=== PATIENT | male | born 1950 | race Caucasian/White ===

== ENCOUNTER 2023-08-12 11:53 | Outpatient (CLI) | payer MEDICARE, SELFPAY ==
--- NOTE | 2023-08-12 11:58 | USCV_ITS ---
Brissa Sinclair Age: 72 Gender: M : 1950 Exam Date: 08/12/2023 12:06 Ordering Phys: Jax Flynn MD Technologist: Exam Location: [facility] [place] Indication: afib BP: 124 / 72 HR: 84 Rhythm: Sinus Technical Quality: Suboptimal MEASUREMENTS (Male / Female) Normal Values 2D ECHO LV Diastolic Diameter PLAX 4.0 cm 4.2 - 5.9 / 3.9 - 5.3 cm LV Systolic Diameter PLAX 2.3 cm IVS Diastolic Thickness 1.2 cm 0.6 - 1.0 / 0.6 - 0.9 cm IVS Systolic Thickness 1.8 cm LVPW Diastolic Thickness 1.4 cm 0.6 - 1.0 / 0.6 - 0.9 cm LVPW Systolic Thickness 1.3 cm LVOT Diameter 2.0 cm LV Ejection Fraction 2D Teich 74.5 % LV Ejection Fraction MOD 2C 55.8 % LV Ejection Fraction 2C AL 58.2 % LA Diameter 3.8 cm M-MODE Aortic Annulus Diameter 3.4 cm LA Ao Ratio MM 1.1 MV E Point Septal Separation 0.8 cm DOPPLER AV Peak Velocity 132.0 cm/s LVOT Peak Velocity 112.0 cm/s AV Area Cont Eq vti 2.9 cm squared AV Area Cont Eq pk 2.7 cm squared MV Area PHT 5.0 cm squared Mitral E to A Ratio 1.0 MV E' Velocity 53.0 cm/s Mitral E to MV E' Ratio 9.9 Mitral E to LV E' Lateral Ratio 10.3 Mitral E to LV E' Septal Ratio 9.5 TR Peak Velocity 155.3 cm/s TR Peak Gradient 9.7 mmHg TV Peak E Velocity 97.0 cm/s Right Atrial Pressure 3.0 mmHg Pulmonary Artery Systolic Pressu 12.7 mmHg RV Acceleration Time 0.1 s FINDINGS Left Ventricle The rhythm is sinus with frequent PVCs and then form of trigeminy and bigeminy. Normal left ventricular size, systolic function and wall thickness, with no regional wall motion abnormalities. Grade I/IV diastolic dysfunction (abnormal relaxation filling pattern), normal to mildly elevated filling pressures. Left ventricular ejection fraction is estimated at 60 %. Right Ventricle Normal right ventricular size and systolic function. Normal right ventricular systolic pressure. Right Atrium The right atrium is normal in size. Left Atrium The left atrium is normal in size. Mitral Valve Structurally normal mitral valve without significant stenosis or prolapse. There is no mitral regurgitation. Aortic Valve Structurally normal aortic valve without significant sclerosis or stenosis. There is no aortic regurgitation. Tricuspid Valve Structurally normal tricuspid valve. Trace tricuspid valve regurgitation. Pulmonic Valve Pulmonic valve not well visualized. Pericardium Normal pericardium without effusion. Aorta Normal ascending aorta dimension. IVC Inferior vena cava not visualized. CONCLUSIONS The rhythm is sinus with frequent PVCs and then form of trigeminy and bigeminy. Normal left ventricular size, systolic function and wall thickness, with no regional wall motion abnormalities. Grade I/IV diastolic dysfunction (abnormal relaxation filling pattern), normal to mildly elevated filling pressures. Left ventricular ejection fraction is estimated at 60 %. There are no prior echocardiogram studies to compare. Dr. Marquise Palacios MD (Electronically Signed) Final Date: 12 August 2023 15:06 S
== END 2023-08-12 11:54 | disposition home or self-care (01) ==
LOC: RAD 11:53
PROVIDERS: PCP Family Medicine; Visit Provider Family Medicine
DX: I48.91 Unspecified atrial fibrillation (principal)
CPT/HCPCS: 93306

== ENCOUNTER → 2023-09-14 09:47 | Outpatient (BNVA) | payer MEDICARE, SELFPAY | PROVIDERS: PCP Family Medicine; Referring Provider Family Medicine; Visit Provider Internal Medicine Cardiovascular Disease | DX: I25.10 Atherosclerotic heart disease of native coronary artery without angina pectoris (principal); J44.9 Chronic obstructive pulmonary disease, unspecified; I73.9 Peripheral vascular disease, unspecified; I65.29 Occlusion and stenosis of unspecified carotid artery; I48.91 Unspecified atrial fibrillation; E78.2 Mixed hyperlipidemia; Z87.891 Personal history of nicotine dependence; I11.9 Hypertensive heart disease without heart failure | CPT/HCPCS: 99204 ==

== ENCOUNTER 2023-10-05 13:53 | Oncology outpatient (recurring) (ONCR) | payer MEDICARE, SELFPAY ==
--- NOTE | 2023-10-05 15:06 | N.ONRAD NP_ITS ---
Radiation Oncology New Patient Visit Patient: Brissa Sinclair MR#: [id number] : 1950 Age: 73 Sex: Male Dictated by: Dr. Damaris Macdonald Date of Service: 10/05/2023 Referring Physician(s) : Dr. 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 Chief Complaint / History of Present Illness: Patient is a 73-year-old gentleman who describes a 2-year history. He said at first he felt a nodule in the left nasal septum about 2 years ago. He said it felt like a sac of fluid. It subsequently got very very sore and then broke open and bled. Since that time it has continually scabbed up and then rebled multiple times. He said prior to his biopsy he had a bloody nose every day. Since the biopsy the bleeding has stopped. He is here today to discuss his diagnosis and proceed with workup and evaluation. He has had radiation before for his prostate cancer. Current Medications: Allergies: Sulfa, Bactrim, Morphine, Augmentin Medical History: No history of collagen vascular disease. No previous radiation therapy. Surgical History: Family History: Social History: Current Complaints / Review of Systems: . Vital Signs: Performed on 10/05/2023 2:13 PM BMI - 34.28 kg/m2 (high), Height - 65 in, Weight - 206 lbs, Temperature - 97.8 f, Pulse - 74 /min, Respiration - 16 /min, O2 Sat - 96 %, Pain - 0, Fatigue - 0 and BP - 158/ 72 mm(hg)(high/). Physical Exam: General: Patient is in no apparent distress. He is accompanied by his sister HEENT: Normocephalic atraumatic. Pupils are equal, sclera clear, extraocular muscles intact. Nasal cavity on the left appears to be obstructed by very erythematous tissue. Appears to extend from the nasal septum laterally to obstruct the nasal opening. There is no active bleeding currently. He has no appreciable cervical or supraclavicular adenopathy. Pulmonary: Respiratory rate is regular nonlabored Cardiovascular: Regular rate and rhythm Abdomen: Patient is markedly protuberant and android pattern Extremities: No obvious edema is noted in the upper extremities Neurological: Alert and orient x 3. Gait and speech within normal limits Psych: Normal affect for current situation Performance Status: KPS 100 Pathology: Lab: Imaging: See HPI Impression: Newly diagnosed moderately differentiated squamous cell carcinoma of the nasal septum Plan: I reviewed with Mr. Wheeler and his sister the findings from the biopsy. We talked about the next step would be to proceed with evaluation to determine the extent of the disease. Will order an MRI of the face and sinus as well as a CT of the soft tissue neck and a PET scan. Secondary to his insurance it may take up to a month to get his PET scan approved. We should be able to get the other scans fairly quickly. Once we get those we will call him and have him return for a follow-up so we can delineate the extent of disease and proceed with evaluation in regards to potential treatment options. We did briefly talk about the radiation option of which he is familiar due to his cancer treatment from before. We did touch upon the effects of radiation in that area and how sore the area we could get internally in the nasal cavity. We also talked briefly about surgical resection of this area and how would be fairly limited and most likely he would require postop radiation. All of his questions and his sister's questions were answered at this point. Will have him return once we have the above information. Signed by: 10/05/2023 3:04:12 PM <<Signature on File>> Time spent with patient:60 CPT Code: CPT Code:
== END 2023-10-28 23:59 | disposition home or self-care (01) ==
PROVIDERS: PCP Family Medicine; Visit Provider Radiology Radiation Oncology
DX: C30.0 Malignant neoplasm of nasal cavity (principal); Z85.46 Personal history of malignant neoplasm of prostate; Z92.3 Personal history of irradiation; Z53.9 Procedure and treatment not carried out, unspecified reason
CPT/HCPCS: 99205

== ENCOUNTER 2023-10-08 13:58 | Outpatient (CLI) | payer MEDICARE, SELFPAY ==
--- NOTE | 2023-10-08 14:30 | MR_ITS ---
WS: [id number] MRI FACE AND NECK WITH AND WITHOUT CONTRAST. COMPARISON: None Multiplanar, multisequence imaging is performed with and without contrast. MultiHance 20 mL IV. History of LEFT nostril cancer. No signal abnormality is noted to the face or neck. There are no enhancing masses. Cannot confirm abn ormal mass or enhancement within the region of the LEFT nostril mucosa. There is no deviation of the midline structures. No enhancement. No fluid collection. Orbits and globes are normal. No signal abno rmality at the tongue base or the hypopharynx. No air-fluid levels in the sinus cavities. No soft tissue masses. The visualized brain demonstrates m ild bilateral cerebral atrophy. No temporal lobe atrophy. The ventricles are normal size. Negative po sterior fossa. IMPRESSION: 1. No abnormal enhancement or mass identified in the nasal cavity by MRI. 2. No cervical chain lymphadenopathy.
[2023-10-08] MEDS: gadobenate dimeglumine 20 mL vial IV (14:54)
== END 2023-10-08 13:59 | disposition home or self-care (01) ==
LOC: RAD 13:59
PROVIDERS: PCP Family Medicine; Visit Provider Radiology Radiation Oncology
DX: C11.3 Malignant neoplasm of anterior wall of nasopharynx (principal)
CPT/HCPCS: 70543; A9577

== ENCOUNTER 2023-10-18 11:21 | Outpatient (CLI) | payer MEDICARE, SELFPAY ==
--- NOTE | 2023-10-18 12:00 | CT_ITS ---
WS: [id number] CT NECK TECHNIQUE: Contrast-enhanced CT of the neck with coronal and sagittal reformatted images. CLINICAL INFORMATION: cancer of nasal septum COMPARISON: None. DLP: 218.[address] scans at [facility] use at least one of these dose optimization techniques: automated e xposure control; mA and/or kV adjustment per patient size (includes targeted exams where dose is matc hed to clinical indication); or iterative reconstruction. FINDINGS: Paranasal sinuses and mastoid air cells are well aerated. Mild mucosal thickening in the et hmoid air cells. Bilateral genaro bullosa. Ostiomeatal units are patent. Mild LEFT to RIGHT nasal sep jorge deviation measuring 3.6 mm. Mild bony thinning of the anterior nasal septum. No nasal septal perf oration. Normal posterior nasopharynx. Normal submandibular glands. Suspected accessory LEFT submandibular gla nd. Parotid glands are normal. No cervical lymphadenopathy. Normal thyroid gland. Advanced chronic em physematous changes in the lung apices. Normal posterior nasopharynx. Normal tongue base. No evidence of supraglottic or glottic mass. Normal subglottic airway. Moderate RIGHT greater than LEFT carotid bulb calcification. Significant stenosis RIGHT proximal ICA. This could be further evaluated with CTA . Normal posterior nasopharynx. Normal parapharyngeal fat. Straightening of the normal cervical lordosis. Advanced spondylitic changes cervical spine. LEFT para central disc osteophyte protrusion C4-5 with moderate central canal stenosis. Severe stenosis LEFT pr oximal subclavian artery patent vertebral artery suspicious for subclavian steal. This can be further evaluated with ultrasound. IMPRESSION: 1. Severe stenosis LEFT proximal subclavian artery with patent vertebral artery suspicious for subcl fracisco steal. This can be further evaluated with ultrasound. 2. Dense calcification RIGHT carotid bulb with significant stenosis RIGHT proximal ICA. Recommend fu rther evaluation with CTA. 3. Paranasal sinuses are well aerated. 4. Mild thinning of the bony nasal septum anteriorly may be due to previous surgery or biopsy. No vi sualized enhancing lesions. 5. No cervical lymphadenopathy. 6. Accessory LEFT submandibular gland. 7. Disc osteophyte protrusion in the cervical spine at LEFT C4-5 with moderate central canal stenosi s. This can be further evaluated with cervical spine MRI.
[2023-10-18 12:19] LABS: Blood Urea Nitrogen 28 mg/dL (8-23)
[2023-10-18] MEDS: iohexol 350 mg/mL 100 mL Btl IV (12:40)
== END 2023-10-18 11:22 | disposition home or self-care (01) ==
LOC: RAD 11:22
PROVIDERS: PCP Family Medicine; Visit Provider Radiology Radiation Oncology
DX: C30.0 Malignant neoplasm of nasal cavity (principal); I70.8 Atherosclerosis of other arteries; I65.21 Occlusion and stenosis of right carotid artery; M25.78 Osteophyte, vertebrae; M48.02 Spinal stenosis, cervical region
CPT/HCPCS: 70491; 82565; 84520; Q9967

== ENCOUNTER 2023-11-02 12:36 | Outpatient (CLI) | payer MEDICARE, SELFPAY ==
--- NOTE | 2023-11-02 13:00 | PETR_ITS ---
PROCEDURE INFORMATION: Exam: PET/CT Skull Base to Mid-thigh Exam date and time: 11/02/2023 1:45 PM Age: 73 years old Clinical indication: Condition or disease; Primary cancer: Malignant neoplasm of anterior wall of nasopharynx; Initial oncological staging assessment; Additional info: Nasa sinus cancer LABS AND CLINICAL REPORTS: Glucose: 135 mg/dl Treatment strategy for malignancy (PET staging): Initial Staging (PI) TECHNIQUE: Imaging protocol: Following at least four-hour fasting and following the injection of radiopharmaceutical, low dose CT images were obtained. Then, PET images were obtained. Attenuation corrected images were constructed using the CT scan. Fused images of PET and CT were reviewed. The standardized uptake values (SUV) reported below are maximum values within a region of interest, expressed in gm/ml. Exam includes orbital meatal line to mid-thigh. Radiopharmaceutical: 12.91 mCi F-18 FDG (Fluorodeoxyglucose), IV. Time of imaging post radiopharmaceutical administration: 1 hour Injection site: Right hand COMPARISON: CT neck 10/18/2023, MRI orbits/face/neck 10/08/2023, CT abdomen pelvis w con* [id number] 12/09/2017 2:41 PM FINDINGS: Brain: Visualized brain has normal physiologic uptake. Pharynx: No abnormal uptake. Larynx: No abnormal uptake. Lungs, pleura and trachea: No abnormal uptake. Paal-wt-[id number] bilateral centrilobular and paraseptal emphysematous changes are present. Heart: Normal physiologic uptake. Mediastinal space: No abnormal uptake. Liver: No abnormal uptake. Gallbladder and bile ducts: No abnormal uptake. Pancreas: No abnormal uptake. Spleen: No abnormal uptake. Adrenal glands: No abnormal uptake. Kidneys and ureters: Normal physiologic uptake. Small, 1-2 mm nonobstructing calculi in the kidneys are noted. Stomach and bowel: No abnormal uptake. There are scattered colonic diverticula. Vasculature: No abnormal uptake. Diffuse atherosclerotic changes are noted including within the coronary arteries. Previous bypass grafting involving the inferior abdominal aorta and common iliac arteries is noted. Lymph nodes: See Oral cavity finding. Bones/joints: No abnormal uptake in the visualized axial and appendicular skeleton. Degenerative changes in the spine are present. A non radiotracer avid region of ovoid sclerosis in the medial left clavicle measuring 1.0 x 0.7 cm on series 3, image 62 is compatible with a benign finding, likely representing a bone island. Degenerative sclerotic changes are noted in the region of the right sacroiliac joint. Soft tissues: Abnormal uptake (SUV max 11.3) is within a similar in size soft tissue density lesion which may represent a mass or lymph node anterior to the left submandibular gland compared to the prior CT currently measuring 2.3 x 1.5 cm in the axial plane on CT series 3, image 42. Marked diastasis of the anterior abdominal wall involving the rectus abdominus muscular sheath is present. There is benign-appearing likely physiologic or inflammatory uptake in the region of the prevertebral soft tissues in the cervical spine and dorsal paraspinous musculature on the right in this region. METRICS: Mediastinal blood pool: SUV max 2.4 [facility] [id number] IMPRESSION: 1. A radiotracer avid ovoid mass or lymph node anterior to the left submandibular gland is noted (SUV max 11.3) concerning for malignancy. 2. No additional areas of radiotracer avid malignancy. 3. Emphysematous changes within the lungs. 4. Nonobstructing bilateral renal calculi. 5. Additional nonurgent findings as detailed above.
== END 2023-11-02 12:37 | disposition home or self-care (01) ==
LOC: RAD 12:36
PROVIDERS: PCP Family Medicine; Visit Provider Radiology Radiation Oncology
DX: C11.3 Malignant neoplasm of anterior wall of nasopharynx (principal); R22.0 Localized swelling, mass and lump, head; J43.9 Emphysema, unspecified
CPT/HCPCS: 78815; A9552

== ENCOUNTER 2023-11-23 14:03 | Oncology outpatient (recurring) (ONCR) | payer MEDICARE, SELFPAY ==
--- NOTE | 2023-11-23 15:11 | ONCRAD TMN_ITS ---
Radiation Oncology Weekly Treatment Management Patient: Brissa Sinclair MR#: [id number] : 1950 Attending Physician: Dr. Damaris Macdonald Date of Service: 11/23/2023 Fractions: 5 out of 23 Referring Physician(s) : Dr. 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 ID: [id number], Energy: 6X, Dose/Fx (cGy): 200, #Fx: , Dose Correction (cGy): 0, Total Dose Delivered (cGy): 1,000, Start Date: 11/17/2023, Elapsed Days: 6 Reason for visit: The patient is being seen today as part of their regularly scheduled weekly on treatment visits to assess for acute toxicities from radiotherapy. Review of Systems: Patient has noticed no changes as yet Vital Signs: Performed on 11/23/2023 2:44 PM BMI - 34.647 kg/m2 (high), Height - 65 in, Weight - 208.2 lbs, Temperature - 98.3 f, Pulse - 69 /min, Respiration - 16 /min, O2 Sat - 96 %, Pain - 0, Fatigue - 5 and BP - 140/ 67 mm(hg). Physical Exam: No changes on exam Imaging: Radiation therapy imaging related to accurate target localization (i.e. KV, MV and CBCT) was reviewed. Appropriate changes, if any, were made to ensure treatment accuracy. Plan: We talked about skin care and using hydrocortisone cream. He also needs refills on his Bactroban which I sent to this pharmacy. Signed by: Dr. Damaris Macdonald 11/23/2023 3:10:14 PM
== END 2023-11-23 23:59 | disposition home or self-care (01) ==
PROVIDERS: PCP Family Medicine; Visit Provider Radiology Radiation Oncology
DX: Z51.0 Encounter for antineoplastic radiation therapy (principal); C30.0 Malignant neoplasm of nasal cavity
CPT/HCPCS: 77300; 77301; 77334; 77338; 77386; 99024; 99214

== ENCOUNTER 2023-11-26 08:56 | Oncology outpatient (recurring) (ONCR) | payer MEDICARE, SELFPAY | END 2023-11-28 23:59 | disposition home or self-care (01) | PROVIDERS: PCP Family Medicine; Visit Provider Radiology Radiation Oncology | DX: Z51.0 Encounter for antineoplastic radiation therapy (principal); C30.0 Malignant neoplasm of nasal cavity | CPT/HCPCS: 77336; 77386 ==

== ENCOUNTER 2023-11-26 09:30 | Outpatient (CLI) | payer MEDICARE, SELFPAY ==
--- NOTE | 2023-11-26 10:30 | USCV_ITS ---
Brissa Sinclair Age: 73 Gender: M : 1950 Exam Date: 11/26/2023 09:55 Ordering Phys: Marquise Palacios MD ([email or web address]) Technologist: AZEB Exam Location: [facility] – [place] Indication: Stenosis Risk Factors: Previous Vascular Surgery: Right Brachial BP: / Left Brachial BP: / Right Left Velocity (cm/s) Spectral Plaque Velocity (cm/s) Spectral Plaque Syst/Diast Broadening Syst/Diast Broadening 107.40/24.50 Prox CCA 115.00/ 26.70 106.20/25.90 Mid CCA 164.10/ 37.20 88.00/ 20.40 Distal CCA 109.30/ 24.70 198.30/50.10 Prox ICA 81.20 / 9.60 214.10/53.30 Mid ICA 112.10/ 16.10 62.30/ 21.20 Distal ICA 95.60 / 30.30 180.00 ECA 140.10 2.40 ICA/CCA 1.00 Antegrade Vertebral Antegrade 74.70/ 19.90 cm/s 46.50/ 15.80 cm/s Tri Subclavian Tri 140.3 108.4 0 0 FINDINGS Comparison: none available. Diffuse bilateral scattered calcified plaque and intimal thickening throughout the common carotid arteries and extending through the bifurcation. Antegrade vertebral arteries. CONCLUSIONS Right ICA stenosis 50-69%. Left ICA stenosis < 50%. Dr. Rola Fontanez DO (Electronically Signed) Final Date: 26 November 2023 12:31 S
--- NOTE | 2023-11-26 11:00 | USCV_ITS ---
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 Near normal arterial Doppler waveforms and Doppler flow velocities bilaterally CONCLUSIONS Normal resting ABIs bilaterally. No significant arterial obstruction, based on the above finding Dr Erinn Rodriguez MD [facility] (Electronically Signed) Final Date: 26 November 2023 15:40 S
== END 2023-11-26 09:31 | disposition home or self-care (01) ==
LOC: RAD 09:31
PROVIDERS: PCP Family Medicine; Visit Provider Internal Medicine Cardiovascular Disease
DX: I65.29 Occlusion and stenosis of unspecified carotid artery (principal); I25.10 Atherosclerotic heart disease of native coronary artery without angina pectoris
CPT/HCPCS: 93880; 93925

== ENCOUNTER 2023-12-20 14:28 | Oncology outpatient (recurring) (ONCR) | payer MEDICARE, SELFPAY ==
--- NOTE | 2023-11-30 15:01 | ONCRAD TMN_ITS ---
Radiation Oncology Weekly Treatment Management Patient: Brissa Sinclair MR#: [id number] : 1950 Attending Physician: Dr. 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 ID: [id number], Energy: 6X, Dose/Fx (cGy): 200, #Fx: , Dose Correction (cGy): 0, Total Dose Delivered (cGy): 2,000, Start Date: 11/17/2023, Elapsed Days: 13 Reason for visit: The patient is being seen today as part of their regularly scheduled weekly on treatment visits to assess for acute toxicities from radiotherapy. Review of Systems: Patient had thrush develop over the weekend. He apparently has a steroid inhaler that he uses and he may have forgotten to rinse. With his current treatment and the steroid he has had a marked outbreak of thrush across his whole tongue. He is even got blisters on the side of his tongue. He started the Diflucan I called in yesterday. And has gotten the second dose in today. Vital Signs: Performed on 11/30/2023 2:23 PM BMI - 34.447 kg/m2 (high), Height - 65 in, Weight - 207 lbs, Temperature - 98 f, Pulse - 61 /min, Respiration - 16 /min, O2 Sat - 97 %, Pain - 6, Fatigue - 6 and BP - 155/ 66 mm(hg)(high/). Physical Exam: Exam today actually looks a little bit better than it did yesterday in terms of the thrush. The blisters however look about the same. Imaging: Radiation therapy imaging related to accurate target localization (i.e. KV, MV and CBCT) was reviewed. Appropriate changes, if any, were made to ensure treatment accuracy. Plan: Will continue with his treatment as planned. He will continue with the Diflucan. I have also sent a lidocaine solution for him to use for the oral cavity. Signed by: Dr. Damaris Macdonald 11/30/2023 2:59:51 PM
--- NOTE | 2023-12-07 15:19 | ONCRAD TMN_ITS ---
Radiation Oncology Weekly Treatment Management Patient: Brissa Sinclair MR#: [id number] : 1950 Attending Physician: Dr. 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 ID: [id number], Energy: 6X, Dose/Fx (cGy): 200, #Fx: , Dose Correction (cGy): 0, Total Dose Delivered (cGy): 3,000, Start Date: 11/17/2023, Elapsed Days: 20 Reason for visit: The patient is being seen today as part of their regularly scheduled weekly on treatment visits to assess for acute toxicities from radiotherapy. Review of Systems: Patient has began to have some mild improvement in the severe thrush that he had. He has been taking his medicine. He has been using the viscous lidocaine as his insurance would not cover Magic mix. Vital Signs: Performed on 12/07/2023 2:33 PM BMI - 33.382 kg/m2 (high), Height - 65 in, Weight - 200.6 lbs, Temperature - 97.6 f, Pulse - 86 /min, Respiration - 18 /min, O2 Sat - 94 % (low), Pain - 7, Fatigue - 4 and BP - 145/ 72 mm(hg)(high/). Physical Exam: His lips have a moist desquamation across both the upper and lower lip. He also has white patches across the tongue which have decreased in severity. The gingiva and soft palate also have a moist desquamation. The submandibular gland on the left has nearly completely resolved. The skin externally has no changes. Imaging: Radiation therapy imaging related to accurate target localization (i.e. KV, MV and CBCT) was reviewed. Appropriate changes, if any, were made to ensure treatment accuracy. Plan: He will continue with his thrush medicine. Tomorrow we will switch to just the boost which involves just the lesion in his nasal cavity. We can continue with this for 2 and half weeks before we have to switch back and finish up the neck treatments. By that time he should have been able to clear the thrush and we should be able to finish his treatment with less side effects. In the meantime I sent hydrocodone to his pharmacy at his request. He has used this in the past even though he has an allergy to morphine which is more of an intolerance than an allergy. Signed by: Dr. Damaris Macdonald 12/07/2023 3:18:43 PM
--- NOTE | 2023-12-14 14:57 | ONCRAD TMN_ITS ---
Radiation Oncology Weekly Treatment Management Patient: Brissa Sinclair MR#: [id number] : 1950 Attending Physician: Dr. Damaris Macdonald Date of Service: 12/14/2023 Fractions: 15 out of 23 initial volume, 3 out of 12 to the boost Referring Physician(s) : Diagnosis: C30.0 - Malignant neoplasm of nasal cavity, Diagnosed 09/22/2023 (Active) Radiotherapy to date: Course: Head Neck 2023, Treatment Site: HN [id number], Ref. ID: [id number], Energy: 6X, Dose/Fx (cGy): 200, #Fx: 3 / , Dose Correction (cGy): 0, Total Dose Delivered (cGy): 600, Start Date: 12/08/2023, Elapsed Days: 6 Course: Head Neck 2023, Treatment Site: HN [id number], Ref. ID: [id number], Energy: 6X, Dose/Fx (cGy): 200, #Fx: , Dose Correction (cGy): 0, Total Dose Delivered (cGy): 3,000, Start Date: 11/17/2023, Elapsed Days: 20 Reason for visit: The patient is being seen today as part of their regularly scheduled weekly on treatment visits to assess for acute toxicities from radiotherapy. Review of Systems/physical exam: Patient's lips have healed up nicely. The oral cavity is beginning to improve as well. He has quite a bit of saliva. The thrush on his tongue is cleared. He still has some small patches on the lateral edges of his tongue. Vital Signs: Performed on 12/14/2023 2:19 PM BMI - 32.883 kg/m2 (high), Height - 65 in, Weight - 197.6 lbs, Temperature - 97.1 f, Pulse - 73 /min, Respiration - 18 /min, O2 Sat - 99 %, Pain - 4, Fatigue - 5 and BP - 156/ 74 mm(hg)(high/). Imaging: Radiation therapy imaging related to accurate target localization (i.e. KV, MV and CBCT) was reviewed. Appropriate changes, if any, were made to ensure treatment accuracy. Plan: Will continue with the boost treatment for now. At some point once we finished the boost will flip back to finishing up the initial volume. Signed by: Dr. Damaris Macdonald 12/14/2023 2:55:00 PM
--- NOTE | 2023-12-20 15:12 | ONCRAD TMN_ITS ---
Radiation Oncology Weekly Treatment Management Patient: Brissa Sinclair MR#: [id number] : 1950> Attending Physician: Dr. 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 ID: [id number], Energy: 6X, Dose/Fx (cGy): 200, #Fx: 6 / 12, Dose Correction (cGy): 0, Total Dose Delivered (cGy): 1,200, Start Date: 12/08/2023, Elapsed Days: 9 Course: Head Neck 2023, Treatment Site: HN [id number], Ref. ID: [id number], Energy: 6X, Dose/Fx (cGy): 200, #Fx: 15 / 23, Dose Correction (cGy): 0, Total Dose Delivered (cGy): 3,000, Start Date: 11/17/2023, Elapsed Days: 20 Reason for visit: The patient is being seen today as part of their regularly scheduled weekly on treatment visits to assess for acute toxicities from radiotherapy. Review of Systems: Patient actually blew some tissue out of his nose this weekend. Since then the tenderness is gone down dramatically. He says is only a 4 out of 10 now. He is able to touch his nose without it being sore. Vital Signs: Performed on 12/20/2023 3:03 PM BMI - 32.051 kg/m2 (high), Height - 65 in, Weight - 192.6 lbs, Temperature - 97.5 f, Pulse - 77 /min, Respiration - 16 /min, O2 Sat - 98 %, Pain - 4, Fatigue - 4 and BP - 152/ 72 mm(hg)(high/). Physical Exam: On exam his skin is without changes. Examination of his nares reveals the lining is slightly edematous and mildly red but the mass that had previously been visualized on that right side is gone. Imaging: Radiation therapy imaging related to accurate target localization (i.e. KV, MV and CBCT) was reviewed. Appropriate changes, if any, were made to ensure treatment accuracy. Plan: The machine was down today. He has things to do tomorrow and he will be back on Wednesday to continue with his treatment as planned Signed by: Dr. Damaris Macdonald 12/20/2023 3:11:10 PM
== END 2023-12-20 23:59 | disposition home or self-care (01) ==
PROVIDERS: PCP Family Medicine; Visit Provider Radiology Radiation Oncology
DX: Z51.0 Encounter for antineoplastic radiation therapy (principal); C30.0 Malignant neoplasm of nasal cavity
CPT/HCPCS: 77336; 77386; 99024

== ENCOUNTER 2023-12-28 14:06 | Oncology outpatient (recurring) (ONCR) | payer MEDICARE, SELFPAY | END 2023-12-28 23:59 | disposition home or self-care (01) | PROVIDERS: PCP Family Medicine; Visit Provider Radiology Radiation Oncology | DX: Z51.0 Encounter for antineoplastic radiation therapy (principal); C30.0 Malignant neoplasm of nasal cavity | CPT/HCPCS: 77336; 77386 ==

== ENCOUNTER 2024-01-10 14:10 | Oncology outpatient (recurring) (ONCR) | payer MEDICARE, SELFPAY ==
--- NOTE | 2024-01-01 22:51 | ONCRAD TMN_ITS ---
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 ID: [id number], Energy: 6X, Dose/Fx (cGy): 200, #Fx: 12 / 12, Dose Correction (cGy): 0, Total Dose Delivered (cGy): 2,400, Start Date: 12/08/2023, End Date: 12/29/2023, Elapsed Days: 21 Course: Head Neck 2023, Treatment Site: HN [id number], Ref. ID: [id number], Energy: 6X, Dose/Fx (cGy): 200, #Fx: / , Dose Correction (cGy): 0, Total Dose Delivered (cGy): 3,000, Start Date: 11/17/2023, Elapsed Days: 20 Reason for visit: The patient is being seen today as part of their regularly scheduled weekly on treatment visits to assess for acute toxicities from radiotherapy. Review of Systems: No pain now. Tired. Able to eat ok but less volume. Active at home Gargling with triple mix which helps sore throat. Vital Signs: Performed on 12/29/2023 2:36 PM BMI - 31.718 kg/m2 (high), Height - 65 in, Weight - 190.6 lbs, Temperature - 97.2 f, Pulse - 64 /min, Respiration - 16 /min, O2 Sat - 98 %, Pain - 0, Fatigue - 7 and BP - 143/ 78 mm(hg)(high/). Physical Exam: Imaging: Radiation therapy imaging related to accurate target localization (i.e. KV, MV and CBCT) was reviewed. Appropriate changes, if any, were made to ensure treatment accuracy. Plan: Good tolerance of treatment. Continue as planned. She will now resume her full sized lujan of treatments as boost has been completed. Signed by: Kevin Rodriguez 01/01/2024 10:50:36 PM Telemedicine Consent Patient seen today via Telemedicine by agreement and consent of patient. Telemedicine technology used during the visit include audio and, as available, review of images. This patient encounter is appropriate and reasonable under the circumstances given the patient???s particular presentation at this time. The patient has been advised of the potential risks and limitations of this mode of treatment (including but not limited to the absence of in-person examination) and has agreed to be treated in a remote fashion in spite of them. Any and all of the patient???s/patient???s family???s questions on this issue have been answered and I have made no promises or guarantees to the patient. The patient has also been advised to contact this office for worsening conditions or problems, and seek emergency medical treatment and/or call 911 if the patient deems either necessary.
--- NOTE | 2024-01-04 17:09 | ONCRAD TMN_ITS ---
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 ID: [id number], Energy: 6X, Dose/Fx (cGy): 200, #Fx: 12 / 12, Dose Correction (cGy): 0, Total Dose Delivered (cGy): 2,400, Start Date: 12/08/2023, End Date: 12/29/2023, Elapsed Days: 21 Head Neck 2023, Treatment Site: HN [id number], Ref. ID: [id number], Energy: 6X, Dose/Fx (cGy): 200, #Fx: , Dose Correction (cGy): 0, Total Dose Delivered (cGy): 3,800, Start Date: 11/17/2023, Elapsed Days: 48 Reason for visit: The patient is being seen today as part of their regularly scheduled weekly on treatment visits to assess for acute toxicities from radiotherapy. Review of Systems: Notes redness and pain along right nares 4 on 10 scale. Using topical triple antibiotic ointment. He also has lidocaine which he is not using. Some weight loss noted. 210 to 189 pounds with good appetite. Active at home. Vital Signs: Performed on 01/04/2024 2:34 PM BMI - 31.551 kg/m2 (high), Height - 65 in, Weight - 189.6 lbs, Temperature - 97.4 f, Pulse - 72 /min, Respiration - 16 /min, O2 Sat - 98 %, Pain - 4, Fatigue - 5 and BP - 150/ 68 mm(hg)(high/). Physical Exam: General nasal mild to moderate erythema. Spot of desquamation at right posterior opening of right nares. Imaging: Radiation therapy imaging related to accurate target localization (i.e. KV, MV and CBCT) was reviewed. Appropriate changes, if any, were made to ensure treatment accuracy. Plan: Good tolerance of treatment. Continue as planned. Signed by: Kevin Rodriguez 01/04/2024 5:07:33 PM
--- NOTE | 2024-01-12 07:54 | N.ONRD TS_ITS ---
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 ID: [id number], Energy: 6X, Dose/Fx (cGy): 200, #Fx: 12 / 12, Dose Correction (cGy): 0, Total Dose Delivered (cGy): 2,400, Start Date: 12/08/2023, End Date: 12/29/2023, Elapsed Days: 21 Treatment Site: HN [id number], Ref. ID: [id number], Energy: 6X, Dose/Fx (cGy): 200, #Fx: , Dose Correction (cGy): 0, Total Dose Delivered (cGy): 4,600, Start Date: 11/17/2023, End Date: 01/10/2024, Elapsed Days: 54 Clinical Summary: The patient tolerated RT well. He had ongoing fatigue 4 on 10 scale. He had some tongue soreness. With pain 4 on 10 scale. He did use salt and soda gargles. Magic mouthwash was added at the end of treatment. Plan: End of treatment today. Continue on the above medications until sxs improve. Follow up in one month. He will call his ENT to have a follow up appointment as well. Signed by: Kevin Rodriguez>01/12/2024 7:52:39 AM <<Signature on File>> Telemedicine Consent Patient seen today via Telemedicine by agreement and consent of patient. Telemedicine technology used during the visit include audio and, as available, review of images. This patient encounter is appropriate and reasonable under the circumstances given the patient???s particular presentation at this time. The patient has been advised of the potential risks and limitations of this mode of treatment (including but not limited to the absence of in-person examination) and has agreed to be treated in a remote fashion in spite of them. Any and all of the patient???s/patient???s family???s questions on this issue have been answered and I have made no promises or guarantees to the patient. The patient has also been advised to contact this office for worsening conditions or problems, and seek emergency medical treatment and/or call 911 if the patient deems either necessary.
== END 2024-01-28 23:59 | disposition home or self-care (01) ==
PROVIDERS: PCP Family Medicine; Visit Provider Radiology Radiation Oncology
DX: Z51.0 Encounter for antineoplastic radiation therapy (principal); C30.0 Malignant neoplasm of nasal cavity
CPT/HCPCS: 77336; 77386; 99024

== ENCOUNTER 2024-03-21 11:45 | Outpatient (CLI) | payer MEDICARE, SELFPAY ==
--- NOTE | 2024-03-21 12:00 | PETR_ITS ---
PROCEDURE INFORMATION: Exam: PET/CT Skull Base to Mid-thigh Exam date and time: 03/21/2024 12:29 PM Age: 73 years old Clinical indication: Condition or disease; Primary cancer: Nasal cancer; Follow-up oncological assessment; Additional info: Fu xrt nasal cancer LABS AND CLINICAL REPORTS: Glucose: 113 mg/dl Treatment strategy for malignancy (PET staging): Restaging (PS) TECHNIQUE: Imaging protocol: Following at least four-hour fasting and following the injection of radiopharmaceutical, low dose CT images were obtained. Then, PET images were obtained. Attenuation corrected images were constructed using the CT scan. Fused images of PET and CT were reviewed. The standardized uptake values (SUV) reported below are maximum values within a region of interest, expressed in gm/ml. Exam includes orbital meatal line to mid-thigh. Radiopharmaceutical: 14.39 mCi F-18 FDG (Fluorodeoxyglucose), IV. Time of imaging post radiopharmaceutical administration: 1 hour Injection site: Right antecubital vein COMPARISON: PT PET skull to thigh INIT [id number] 11/02/2023, CT abdomen pelvis 12/09/2017 FINDINGS: Brain: Visualized brain has normal physiologic uptake. Pharynx: No abnormal uptake. Larynx: No abnormal uptake. Lungs, pleura and trachea: No abnormal uptake. Stable moderate centrilobular emphysema in the upper lobes. No suspicious lung nodules or masses. No pleural effusion. Heart: Normal physiologic uptake. There is no cardiomegaly. Coronary artery calcification is present. There is no pericardial effusion. Mediastinal space: No abnormal uptake. Liver: No abnormal uptake. Gallbladder and biliary ducts: No abnormal uptake. No calcified gallstones. Pancreas: No abnormal uptake. Spleen: No abnormal uptake. No splenomegaly. Adrenal glands: No abnormal uptake. 1.9 x 1.2 cm benign right adrenal cortical adenoma is not significantly changed since 12/09/2017. No left adrenal nodule. Kidneys and ureters: Normal physiologic uptake. No hydronephrosis. Stable punctate nonobstructing right renal stones. Stomach and bowel: No abnormal uptake. Mild diverticulosis of the sigmoid colon. Vasculature: No abnormal uptake. Status post aortobifemoral bypass surgery. Stable stents in bilateral common iliac arteries. Lymph nodes: Left submandibular lymph node decreased from 2.3 x 1.5 cm/11.3 SUV to 1 x 0.9 cm/6.6 SUV. No FDG avid lymphadenopathy in the chest, abdomen, pelvis and extremities. Skeleton: No abnormal uptake in the visualized axial and appendicular skeleton. Stable degenerative grade 1 anterolisthesis of L4. Soft tissues: No abnormal uptake in the visualized head, neck, chest, abdomen, pelvis, and extremities. PET/PET skull to thigh SUBS [id number] IMPRESSION: In comparison with 11/02/2023 there is partial response to treatment. Left submandibular samantha metastasis decreased in size and uptake (from 11.3 SUV to 6.6 SUV). No new FDG avid metastatic sites.
== END 2024-03-21 11:46 | disposition home or self-care (01) ==
PROVIDERS: PCP Family Medicine; Visit Provider Radiology Radiation Oncology
DX: C11.3 Malignant neoplasm of anterior wall of nasopharynx (principal); J43.2 Centrilobular emphysema; I70.0 Atherosclerosis of aorta; D35.01 Benign neoplasm of right adrenal gland; N20.0 Calculus of kidney; Z95.1 Presence of aortocoronary bypass graft; Z95.820 Peripheral vascular angioplasty status with implants and grafts; M43.16 Spondylolisthesis, lumbar region
CPT/HCPCS: 78815; A9552

== ENCOUNTER 2024-03-27 09:57 | Oncology outpatient (recurring) (ONCR) | payer MEDICARE, SELFPAY ==
--- NOTE | 2024-03-27 13:45 | ONCRAD EPV_ITS ---
Radiation Oncology Established Patient Visit Patient: Brissa Sinclair [id number] : 1950 Age: 73 Sex: Male Dictated by: Dr. 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 ID: [id number], Energy: 6X, Dose/Fx (cGy): 200, #Fx: / 12, Dose Correction (cGy): 0, Total Dose Delivered (cGy): 2,400, Start Date: 12/08/2023, End Date: 12/29/2023, Elapsed Days: 21 Course: Head Neck 2023, Treatment Site: HN [id number], Ref. ID: [id number], Energy: 6X, Dose/Fx (cGy): 200, #Fx: , Dose Correction (cGy): 0, Total Dose Delivered (cGy): 4,600, Start Date: 11/17/2023, End Date: 01/10/2024, Elapsed Days: 54 Current History: Subjectively he is doing quite well. He no longer has any pain at all. He no longer has any drainage or bleeding. The airway has opened up nicely but the right side is still narrower than the left. His appetite and his energy have returned. His PET scan showed improvement with the drop in size and SUV down from 11 to 6. Current Medications: Allergies: Current Complaints / Review of Systems: . Vital Signs: Performed on 03/27/2024 9:47 AM BMI - 31.551 kg/m2 (high), Height - 65 in, Weight - 189.6 lbs, Temperature - 97.0 f, Pulse - 79 /min, Respiration - 16 /min, O2 Sat - 96 %, Pain - 0, Fatigue - 0 and BP - 134/ 77 mm(hg). Physical Exam: General: Alert and oriented x 3. No acute distress. HEENT: Normocephalic, atraumatic. Extraocular Movements Intact: Pupils Equal, Round, Reactive to Light: Sclerae anicteric. Examination of the nasal cavity revealed there to be no hair growth. The tissue in the right nares is nicely pink with no erythema or ulceration noted. No masses were noted..\ NECK: Supple without supraclavicular or jugular lymphadenopathy. He does have some mild submental edema. Performance Status: 100 Lab: None pending. Pathology: Primary, c30.0 - malignant neoplasm of nasal cavity, Diagnosed 09/22/2023 (active) . 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 We also talked about working with a dentist and oral surgeon to take care of his teeth. I have asked that he have his dentist and oral surgeon call so that we can discuss the treatment plan. He will need to have hyperbaric treatments done before and after any of the procedures that will be done. He is having dry mouth even though he still has some saliva. The saliva unfortunately is the thick mucus type. I encouraged him to continue to eat and drink normally and try and drink enough water. It will be another 6 months before we know if he will have much come back in terms of the water component of his saliva. In the meantime of asked him to use XyliMelts to help keep the dryness under control. At this point we will see him back with a PET scan in 6 months. Signed by: 03/27/2024 1:44:08 PM <<Signature on File>> Time spent with patient:35 CPT Code: CPT Code:
== END 2024-03-29 23:59 | disposition home or self-care (01) ==
PROVIDERS: PCP Family Medicine; Visit Provider Radiology Radiation Oncology
DX: C30.0 Malignant neoplasm of nasal cavity (principal); Z92.3 Personal history of irradiation
CPT/HCPCS: 99024

== ENCOUNTER → 2024-06-28 15:00 | Outpatient (BNVA) | payer MEDICARE, SELFPAY | PROVIDERS: PCP Family Medicine; Visit Provider Internal Medicine Cardiovascular Disease | DX: I73.9 Peripheral vascular disease, unspecified (principal); I65.29 Occlusion and stenosis of unspecified carotid artery; I48.91 Unspecified atrial fibrillation; I25.10 Atherosclerotic heart disease of native coronary artery without angina pectoris; R60.9 Edema, unspecified; I11.9 Hypertensive heart disease without heart failure; Z87.891 Personal history of nicotine dependence | CPT/HCPCS: 99214 ==

== ENCOUNTER 2024-10-19 08:33 | Oncology outpatient (recurring) (ONCR) | payer MEDICARE, SELFPAY ==
--- NOTE | 2024-10-13 08:30 | PETR_ITS ---
PROCEDURE INFORMATION: Exam: PET/CT Skull Base to Mid-thigh Exam date and time: 10/13/2024 9:37 AM Age: 74 years old Clinical indication: Condition or disease; Primary cancer: Nasal cavity cancer; Prior surgery; Surgery date: 1-6 months; Surgery type: Removal of mass in left neck; Follow up radiation LABS AND CLINICAL REPORTS: Glucose: 164 mg/dl Treatment strategy for malignancy (PET staging): Restaging (PS) TECHNIQUE: Imaging protocol: Following at least four-hour fasting and following the injection of radiopharmaceutical, low dose CT images were obtained. Then, PET images were obtained. Attenuation corrected images were constructed using the CT scan. Fused images of PET and CT were reviewed. The standardized uptake values (SUV) reported below are maximum values within a region of interest, expressed in gm/ml. Exam includes orbital meatal line to mid-thigh. SUV normalization method: BodyWeight Radiopharmaceutical: 10.89 mCi F-18 FDG (Fluorodeoxyglucose), IV. Time of imaging post radiopharmaceutical administration: 48 minutes Injection site: right ac COMPARISON: PT PET skull to thigh SUBS [id number] 03/21/2024 12:29 PM FINDINGS: Brain: Visualized brain has normal physiologic uptake. Pharynx: Mild narrowing of the inferior oropharynx with surrounding increased metabolic activity similar to background activity of the treated radiation port, maximum SUV 3.4. Larynx: Increased metabolic activity throughout the larynx, centered at the vocal cords and with similar metabolic activity compared to the background soft tissues, maximum SUV 4.1, likely combination of posttreatment change and focal cord use. There is no discrete underlying lesion. Lungs, pleura and trachea: No abnormal uptake. Heart: Normal physiologic uptake. Severe coronary artery calcifications. Mediastinal space: No abnormal uptake. Liver: No abnormal uptake. Gallbladder and biliary ducts: No abnormal uptake. Pancreas: No abnormal uptake. Spleen: No abnormal uptake. Adrenal glands: No abnormal uptake. Stable 1.9 cm right adrenal adenoma. Kidneys and ureters: Normal physiologic uptake. Bilateral nonobstructive nephrolithiasis. Stomach and bowel: No abnormal uptake. Herniation of the bowel through a large anterior abdominal wall defect due to severe diastasis of the rectus abdominis musculature. Vasculature: No abnormal uptake. Lymph nodes: Previously noted hypermetabolic left submandibular nodule is not well defined due to now pronounced local postradiation changes. Metabolic activity in the region of the previously noted nodule has maximum SUV of 3.4, which is similar to the background soft tissues, which also exhibit increased metabolic activity due to sequela of radiation. There are increased dystrophic calcifications in the retro submandibular region, likely sequela of treatment. Otherwise, there are no new metabolically active lymph nodes. Skeleton: No abnormal uptake in the visualized axial and appendicular skeleton. Soft tissues: Compared to the prior study from 03/21/2024, there has been interval radiation of the left submandibular region, with associated ill-defined infiltrative soft tissue in the left submandibular region, as well as the left cheek and instrumentation instructor space. There is associated pronounced increased metabolic activity along throughout the floor of the mouth, oropharynx, left submandibular and parotid spaces and left upper neck, with overall background metabolic activity maximum SUV of 3.7. There is also marked increased FDG uptake involving the upper cervical paraspinal musculature and left sternocleidomastoid muscle, maximum SUV 6.7, likely sequela of radiation and muscle cramping. Overall extensive metabolic activity in the region limits assessment for the treated samantha metastasis. There is colonic diverticulosis without diverticulitis. PET/PET skull to thigh SUBS [id number] IMPRESSION: 1. Postradiation changes of the left neck and submandibular region with overall increased local FDG uptake of the surrounding soft tissues, likely related to postradiation changes. Previously noted metastatic left submandibular node is not well delineated given new infiltrative posttreatment changes. Overall maximum SUV in the region of the previously noted lymph node is decreased (maximum SUV now 3.4, previously 6.6) and is similar to the background soft tissues. Findings suggest treatment response, although close attention should be made on follow-up imaging given extensive adjacent posttreatment changes. 2. No new FDG avid metastases.
--- NOTE | 2024-10-19 10:07 | ONCRAD EPV_ITS ---
Radiation Oncology Established Patient Visit Patient: Brissa Sinclair [id number] : 1950 Age: 74 Sex: Male Dictated by: Dr. 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 He completed his external beam radiation in October 2023. He recently had excision of a residual group of lymph nodes in the left neck. This was done at [facility] in [place]. We do not currently have the records from this but we will get those. His most recent PET scan showed only post treatment changes and no evidence of any new malignancies or recurrence. Radiotherapy to Date: Course: Head Neck 2023, Treatment Site: HN [id number], Ref. ID: [id number], Energy: 6X, Dose/Fx (cGy): 200, #Fx: 12 / 12, Dose Correction (cGy): 0, Total Dose Delivered (cGy): 2,400, Start Date: 12/08/2023, End Date: 12/29/2023, Elapsed Days: 21 Course: Head Neck 2023, Treatment Site: HN [id number], Ref. ID: [id number], Energy: 6X, Dose/Fx (cGy): 200, #Fx: 23 / 23, Dose Correction (cGy): 0, Total Dose Delivered (cGy): 4,600, Start Date: 11/17/2023, End Date: 01/10/2024, Elapsed Days: 54 Current History: Current Medications: Allergies: Current Complaints / Review of Systems: . Vital Signs: Performed on 10/19/2024 8:55 AM BMI - 29.987 kg/m2 (high), Height - 65 in, Weight - 180.2 lbs, Temperature - 97.6 f, Pulse - 39 /min (low), Respiration - 17 /min, O2 Sat - 97 %, Pain - 0, Fatigue - 0 and BP - 130/ 59 mm(hg)(/low). Physical Exam: General: Alert and oriented x 3. No acute distress. HEENT normocephalic atraumatic. Pupils are equal, sclera clear, extraocular muscles intact NECK: Examination of the neck reveals the incision from the most recent surgery appears to be nicely healed. He does have significant submental edema.. LUNGS: Respiratory rate is regular nonlabored HEART: Regular rate and rhythm. . ABDOMEN: Moderately protuberant and android pattern EXTREMITIES: No peripheral edema is identified. NEUROLOGIC: Alert and orient x 3. Gait and speech within normal limits. He does have an area of numbness across his left cheek and neck from his recent surgery Performance Status: 100 Lab: None pending. Pathology: Primary, c30.0 - malignant neoplasm of nasal cavity, Diagnosed 09/22/2023 (active) . Imaging: See HPI Impression: Squamous of carcinoma the nasal cavity Plan: At this point he is recovered nicely from his surgery. His most recent PET scan is clear. We talked about whether we would want to proceed with additional imaging. Apparently has co-pay and deductible is $350 for either PET scan or CT. At this point he will consider what he would like to proceed with in terms of imaging and we will see him back in 6 months. He will call if any problems arise in the interim Signed by: 10/19/2024 10:06:02 AM <<Signature on File>> Time spent with patient: 20 CPT Code: * CPT Code: *
== END 2024-10-27 23:59 | disposition home or self-care (01) ==
PROVIDERS: PCP Family Medicine; Visit Provider Radiology Radiation Oncology
DX: C11.3 Malignant neoplasm of anterior wall of nasopharynx (principal); Z92.3 Personal history of irradiation
CPT/HCPCS: 78815; 99213; A9552

== ENCOUNTER 2025-03-29 08:15 | Outpatient (CLI) | payer MEDICARE, SELFPAY ==
--- NOTE | 2025-03-29 08:32 | CT_ITS ---
WS: [id number] CT ABDOMEN AND PELVIS NONCONTRAST HISTORY: PARTIAL OBSTRUCTION OF COLON TECHNIQUE: Imaging performed through the abdomen and pelvis. Coronal and sagittal reformats are submitted. All CT scans at [facility] use at least one of these dose optimization techniques: automated exposure control; mA and/or kV adjustment per patient size (includes targeted exams where dose is matched to clinical indication); or iterative reconstruction. DLP: 423.07 mGy.cm COMPARISON: 12/09/2017 Lower thorax: Lung bases are clear. Visualized heart is normal. No hiatal hernia. Liver: Normal size liver. No mass or bile duct dilatation. Gallbladder: Normal gallbladder. No pericholecystic fluid or cholelithiasis. No gallbladder wall thickening. Pancreas: Normal size and attenuation. Normal pancreatic duct. No pancreatitis or mass. Spleen: Normal. Adrenal glands: 1.6 cm RIGHT adrenal adenoma stable since 12/09/2017. Normal LEFT adrenal gland. Right kidney: Normal size kidney. No perinephric stranding. Nonobstructing 2 mm calcification upper pole. Left kidney: Normal size kidney. Nonobstructing central renal calcifications. Aorta: Atherosclerosis aorta. Patient is status post aortic bypass graft repair. Mesenteric artery calcifications. No free fluid, intraperitoneal air or significant lymphadenopathy. GI tract: Normal noncontrast imaging of the stomach, small bowel and colon. No obstruction or wall thickening. Normal appendix. Abdominal wall: There is a marked stretching of the linea alba with a large gap between the rectus abdominis muscles. The gap between the rectus abdominal muscles estimated at approximately 15.4 cm. The linea elbow is stretched significantly. There is probably a small gap in the LEFT linea alba containing fat only. Pelvis: No free fluid or adenopathy. Osseous structures: L4 anterolisthesis by 5.6 mm. Bilateral facet joint arthropathy at L4-5 and L5-S1. No destructive bone lesions. CT/CT abdomen pelvis wo con [id number] IMPRESSION: 1. No GI tract obstruction or colitis. 2. Marked diastases recti. Gap between the rectus abdominis muscles is 15.4 cm . 3. Nonobstructing bilateral renal calculi. 4. Long-term stability RIGHT adrenal adenoma, 1.6 cm. 5. Status post aortic bypass graft repair.
== END 2025-03-29 08:16 | disposition home or self-care (01) ==
LOC: RAD 08:16
PROVIDERS: PCP Family Medicine; Visit Provider Electrodiagnostic Medicine
DX: K56.600 Partial intestinal obstruction, unspecified as to cause (principal); D35.01 Benign neoplasm of right adrenal gland; I70.0 Atherosclerosis of aorta; M43.16 Spondylolisthesis, lumbar region; Z95.828 Presence of other vascular implants and grafts
CPT/HCPCS: 74176